=== PATIENT | male | born 1990 | race American Indian/Alaskan Native ===

== ENCOUNTER 2017-02-06 21:53 | Emergency (ER) | payer MEDICAID ==
[2017-02-06] MEDS ORDERED: NACL 0.9% 1000 ML 1,000 ML IV ONE (22:11)
--- NOTE | 2017-02-06 22:13 | Emergency Department Report ---
HPI - General Chief Complaint: Alcohol Time Seen by Provider: 02/06/17 21:59 - HPI HPI: This is a 26-year-old -[place] male who presents to the emergency department via EMS with altered mental status and suspicion for possible alcohol intoxication. The patient is currently sleeping and hard to arouse and therefore is a poor historian. He currently has a gag reflex and appears to be maintaining his respiratory status. The patient has never been here before and therefore I am unable to look up any past medical history or previous visits. ED Past Medical Hx - Past Medical History Previous Medical History?: No Additional medical history: unable to obtain - Surgical History Past Surgical History?: No Additional Surgical History: unable to obtain - Social History Smoking Status: Unknown if ever smoked Substance Use Type: Alcohol ED Review of Systems ROS: Stated complaint: ALTERED MENTAL STATUS/POSS ETOH Other details as noted in HPI Comment: Unobtainable due to pts medical conditions Physical Exam - Physical Exam Vital Signs: Vital Signs 02/06/17 22:01 Temperature 98.3 F Pulse Rate 95 H Respiratory 17 Rate Blood Pressure 108/63 Blood Pressure 108/63 [Right] O2 Sat by Pulse 95 Oximetry Physical Exam: GENERAL: The patient is well-developed well-nourished. HEENT: Normocephalic. Atraumatic. Pupils equal reactive to light bilaterally. Patient has moist mucous membranes. NECK: Supple. Trachea is midline. CHEST/LUNGS: Clear to auscultation. There is no respiratory distress noted. HEART/CARDIOVASCULAR: Regular. There is no tachycardia. There is no gallop rub or murmur. ABDOMEN: Abdomen is soft, nontender. Patient has normal bowel sounds. There is no abdominal distention. SKIN: Skin is warm and dry. NEURO: Patient is sleeping and mostly unresponsive. He does withdraw to painful stimuli. MUSCULOSKELETAL: There is no tenderness or deformity. There is no limitation range of motion. There is no evidence of acute injury. ED Course Vital Signs 02/06/17 22:01 Temperature 98.3 F Pulse Rate 95 H Respiratory 17 Rate Blood Pressure 108/63 Blood Pressure 108/63 [Right] O2 Sat by Pulse 95 Oximetry - Reevaluation(s) Reevaluation #1: Patient was reevaluated a few hours into his ED course and he is much more awake and lucid. He still appears slightly intoxicated and he does have a large blood alcohol level. The patient admits to call his him and heavy drinking tonight, along with most days. The rest of his labs appear unremarkable. He has maintained his respiratory status. 02/07/17 20:05 ED Medical Decision Making - Lab Data Result diagrams: 02/06/17 22:33 02/06/17 22:33 - Radiology Data Radiology results: report reviewed CT of the head does not show any acute process including no hemorrhage, mass, shift, diffuse edema or skull fracture. - Medical Decision Making 26-year-old male presents with what eventually was found to be alcohol intoxication. He started off at 0.38. By the time his blood alcohol level was 0.27 he was much more awake and alert and admitted to alcoholism and heavy alcohol use. CT of the head was done that did not show any bleed, shift, mass or any acute process. The rest of his labs are mostly unremarkable. He was given IV fluid, thiamine, multivitamin. The patient was monitored in the emergency department closely until he was at a sober and legal alcohol level and then he was discharged home. He was given referrals for primary care and [facility] for alcoholism help. - Differential Diagnosis alcohol intoxication, polysubstance abuse, CVA Critical Care Time: No Critical care attestation.: If time is entered above; I have spent that time in minutes in the direct care of this critically ill patient, excluding procedure time. ED Disposition Clinical Impression: Alcohol abuse, Alcoholism Alcohol intoxication Qualifiers: Complication of substance-induced condition: uncomplicated Qualified Code(s): F10.920 - Alcohol use, unspecified with intoxication, uncomplicated Disposition: DC-01 TO HOME OR SELFCARE Is pt being admited?: No Condition: Stable Instructions: Alcohol Intoxication (ED), Abuse of Alcohol (ED) Additional Instructions: I have given you a referral for [facility] in case she would like to establish care for primary care. I referral for the [facility] facility in case she would like to seek help with your out all addiction. Return to the emergency department with any acute distress. Referrals: PRIMARY CARE, [Primary Care Provider] - 3-5 Days [facility] [Outside] - 3-5 Days [facility] [Outside] - 3-5 Days Time of Disposition: 05:13
[2017-02-06 23:09] LABS: Anion Gap 20 mmol/L; BUN/Creatinine Ratio 12.22; Blood Urea Nitrogen 11 mg/dL (9-20); Calcium 8.3 mg/dL (8.4-10.2); Carbon Dioxide 24 mmol/L (22-30); Chloride 106.6 mmol/L (98-107); Glucose 100 mg/dL (75-100); Potassium 4.4 mmol/L (3.6-5.0); Sodium 146 mmol/L (137-145)
[2017-02-06] MEDS ORDERED: VITAMIN B-1 100 MG, FOLVITE 1 MG, INFUVITE 10 ML in NACL 0.9% 1000 ML 1,000 ML IV ONE (23:13)
[2017-02-06 23:28] LABS: Basophils % (Auto) 0.7 % (0.0-1.8); Eosinophils % (Auto) 1.4 % (0.0-4.3); Hematocrit 39.2 % (35.5-45.6); Hemoglobin 12.9 gm/dl (11.8-15.2); Mean Corpuscular HGB Conc 33 % (32-34); Mean Corpuscular Hemoglobin 31 pg (28-32); Mean Corpuscular Volume 95 fl (84-94); Platelet Count 264 K/mm3 (140-440); Red Blood Count 4.13 M/mm3 (3.65-5.03); White Blood Count 4.1 K/mm3 (4.5-11.0)
--- NOTE | 2017-02-06 23:40 | Cat Scan Report ---
FINAL REPORT PROCEDURE: CT HEAD/BRAIN WO CON TECHNIQUE: Computerized tomography of the head was performed without contrast material. HISTORY: AMS COMPARISON: No prior studies are available for comparison. FINDINGS: Skull and scalp: Normal. Paranasal sinuses: Normal. Ventricles and subarachnoid spaces: Normal. Cerebrum: No evidence of hemorrhage, acute infarction or mass . Cerebellum and brainstem: No evidence of hemorrhage, acute infarction or mass. Vasculature: Normal. Comments: None. IMPRESSION: There is no evidence of an acute intracranial process
[2017-02-07 01:13] LABS: Urine Drugs of Abuse Note Disclamer
[2017-02-07 01:19] LABS: Bilirubin,Urine NEG (Negative); Blood,Urine NEG (Negative); Ketones,Urine NEG (Negative); Leukocyte Esterase,Urine NEG (Negative); Mucus,Urine FEW /HPF; Nitrite,Urine NEG (Negative); Protein,Urine <15 mg/dL mg/dL (Negative); Urobilinogen,Urine < 2.0 mg/dL (<2.0)
[2017-02-07] MEDS ORDERED: NACL 0.9% 1000 ML 1,000 ML IV ONE (01:24)
[2017-02-07 15:02] VITALS: BP 149/89
== END 2017-02-07 15:06 | disposition home or self-care (01) ==
LOC: ED 21:53
DX: F10.129 Alcohol abuse with intoxication, unspecified (principal)
CPT/HCPCS: 36415; 70450; 80048; 80307; 81001; 84443; 84484; 85025; 93005; 93010; 96361; 96365; 99285; G0480; J3411; J7030; 80320

== ENCOUNTER 2017-02-09 01:52 | Emergency (ER) | payer MEDICAID ==
[2017-02-09 03:44] LABS: Hematocrit 43.1 % (35.5-45.6); Hemoglobin 14.2 gm/dl (11.8-15.2); Mean Corpuscular HGB Conc 33 % (32-34); Mean Corpuscular Hemoglobin 31 pg (28-32); Mean Corpuscular Volume 94 fl (84-94); Platelet Count 218 K/mm3 (140-440); Red Cell Distribution Width 14.7 % (13.2-15.2); White Blood Count 4.7 K/mm3 (4.5-11.0)
[2017-02-09 03:54] LABS: Alanine Aminotransferase 29 units/L (7-56); Albumin 4.3 g/dL (3.9-5); Albumin/Globulin Ratio 1.5 %; Alkaline Phosphatase 75 units/L (35-129); Anion Gap 27 mmol/L; BUN/Creatinine Ratio 7.77; Blood Urea Nitrogen 7 mg/dL (9-20); Calcium 8.8 mg/dL (8.4-10.2); Carbon Dioxide 20 mmol/L (22-30); Chloride 97.7 mmol/L (98-107); Glucose 100 mg/dL (75-100); Potassium 3.3 mmol/L (3.6-5.0); Sodium 141 mmol/L (137-145); Total Protein 7.2 g/dL (6.3-8.2)
[2017-02-09] MEDS ORDERED: VITAMIN B-1 100 MG, FOLVITE 1 MG, INFUVITE 10 ML in NACL 0.9% 1000 ML 1,000 ML IV ONE (04:47)
[2017-02-09 10:08] VITALS: BP 129/94
--- NOTE | 2017-02-09 10:13 | Emergency Department Report ---
ED General Adult HPI - General Chief complaint: Alcohol Stated complaint: FEELING FAINT Time Seen by Provider: 02/09/17 06:46 Source: patient Mode of arrival: Ambulatory Limitations: Physical Limitation - History of Present Illness Initial comments: Patient reports alcohol use. Denies trauma. Denies SI/HI. Hostetter dizzy -: Gradual Severity scale (0 -10): 0 Consistency: intermittent Improves with: none Worsens with: none Associated Symptoms: denies: confusion, chest pain, cough, diaphoresis, headaches, loss of appetite, malaise, nausea/vomiting, rash, shortness of breath , syncope, weakness - Related Data Home Medications Medication Instructions Recorded Confirmed Last Taken Unobtainable 02/09/17 02/09/17 Unknown Allergies Allergy/AdvReac Type Severity Reaction Status Date / Time Unable to Assess Allergy Verified 02/06/17 23:14 ED Review of Systems ROS: Stated complaint: FEELING FAINT Other details as noted in HPI Other: GENERAL: No weight change, fatigue, weakness, fever, chills, or night sweats SKIN: No changes in skin or hair, no itching, no rashes, no jaundice HEAD: No trauma, headache, or visual changes EYES: No blurriness, tearing, itching, acute visual loss, conjunctival discoloration, or scleral icterus EARS: No hearing loss, tinnitus, vertigo, or earache NOSE: No rhinorrhea, stuffiness, sneezing, itching, or epistaxis MOUTH: No bleeding gums, hoarseness, sore throat, or swelling CARDIAC: No new murmur, chest pain, palpitations, dyspnea on exertion, orthopnea , PND, or edema RESPIRATORY: No shortness of breath, wheeze, cough, sputum production, hemoptysis, pneumonia, asthma, bronchitis, or emphysema GI: No change in appetite, nausea, vomiting, dysphagia, change in bowel frequency, diarrhea, constipation, bleeding, hematemesis, melena, hematochezia, or abdominal pain URINARY: No frequency, urgency, polyuria, dysuria, hematuria, or incontinence MUSCULOSKELETAL: No muscle weakness, joint stiffness, decrease in range of motion, redness, swelling, tenderness NEUROLOGIC: No loss of sensation, numbness, tingling, tremors, weakness, paralysis, seizures HEMATOLOGIC: No anemia, easy bruising, bleeding, petechiae, or purpura ENDOCRINE: No hot or cold intolerance, sweating, polyuria, polydipsia or, polyphagia no thyroid problems PSYCHIATRIC: No change in mood, no anxiety, no depression ED Past Medical Hx - Past Medical History Additional medical history: unable to obtain - Surgical History Additional Surgical History: unable to obtain - Social History Smoking Status: Unknown if ever smoked Substance Use Type: Alcohol - Medications Home Medications: Home Medications Medication Instructions Recorded Confirmed Last Taken Type Unobtainable 02/09/17 02/09/17 Unknown History ED Physical Exam - General Limitations: Physical Limitation - Other Other exam information: GENERAL: Patient in no acute distress HEAD: Normocephalic, atraumatic EYES: PERRLA, EOM intact, no scleral icterus, no papilledema, no conjunctival hemorrhage, visual bhakta and acuity wnl, NOSE: No tenderness, discharge, sinus tenderness MOUTH: No erythema, bleeding, exudate HEART: Regular rate and rhythm, no murmur, S1-S2 are auscultated, pulses are symmetric LUNGS: No wheezing, rales, rhonchi, bilateral breath sounds ABDOMEN: Normal bowel sounds, no tenderness, no rebound, no guarding, no masses , no CVA tenderness MUSCULOSKELETAL: Normal joint range of motion, no redness, no swelling, no tenderness NEUROLOGIC: GCS 15, Alert and Oriented x3, Cranial nerves intact, normal sensation, normal strength, normal gait, no cerebellar deficit PSYCHIATRIC: No homicidal or suicidal ideation, no anxiety, no depression, no hallucinations SKIN: Skin is warm and dry, no wounds, no rashes ED Course Vital Signs 02/09/17 02/09/17 02/09/17 03:01 04:23 04:30 Temperature 98.2 F Pulse Rate 86 71 75 Respiratory 18 16 18 Rate Blood Pressure 124/79 104/63 O2 Sat by Pulse 98 98 Oximetry 02/09/17 02/09/17 02/09/17 04:35 04:39 04:40 Temperature 98.1 F Pulse Rate 76 Respiratory 17 18 Rate Blood Pressure 104/63 O2 Sat by Pulse 98 Oximetry 02/09/17 02/09/17 02/09/17 04:50 05:00 05:10 Temperature Pulse Rate 77 77 75 Respiratory 19 17 16 Rate Blood Pressure 110/57 108/63 108/63 O2 Sat by Pulse 98 98 99 Oximetry 02/09/17 02/09/17 02/09/17 05:20 05:30 05:40 Temperature Pulse Rate 69 78 73 Respiratory 16 18 15 Rate Blood Pressure 104/60 122/86 122/86 O2 Sat by Pulse 100 100 100 Oximetry 02/09/17 02/09/17 02/09/17 05:50 06:00 06:10 Temperature Pulse Rate 64 71 66 Respiratory 18 10 L 15 Rate Blood Pressure 114/77 108/69 108/69 O2 Sat by Pulse 100 100 99 Oximetry 02/09/17 02/09/17 02/09/17 06:20 06:30 06:40 Temperature Pulse Rate 63 67 61 Respiratory 19 15 16 Rate Blood Pressure 112/70 120/75 120/75 O2 Sat by Pulse 100 98 99 Oximetry 02/09/17 02/09/17 02/09/17 06:50 07:00 07:30 Temperature Pulse Rate 82 66 Respiratory 15 28 H 16 Rate Blood Pressure 121/86 121/86 118/75 O2 Sat by Pulse 99 99 100 Oximetry 02/09/17 02/09/17 02/09/17 08:00 08:30 09:00 Temperature Pulse Rate 66 72 Respiratory 40 H 16 17 Rate Blood Pressure 113/90 107/61 128/81 O2 Sat by Pulse 97 94 95 Oximetry 02/09/17 02/09/17 09:30 10:00 Temperature Pulse Rate 74 67 Respiratory 18 22 Rate Blood Pressure 127/91 129/94 O2 Sat by Pulse 86 89 Oximetry ED Medical Decision Making - Lab Data Result diagrams: 02/09/17 03:09 02/09/17 03:09 - Medical Decision Making Patient comfortable. Updated with results. Plan discharge with outpatient follow-up. Patient agrees with plan and will return if symptoms worsen. Critical care attestation.: If time is entered above; I have spent that time in minutes in the direct care of this critically ill patient, excluding procedure time. ED Disposition Clinical Impression: Alcohol abuse Disposition: DC-01 TO HOME OR SELFCARE Is pt being admited?: No Condition: Stable Instructions: Abuse of Alcohol (ED) Referrals: PRIMARY CARE, [Primary Care Provider] - 3-5 Days Time of Disposition: 10:10
[2017-02-09 10:22] LABS: Urine Drugs of Abuse Note Disclamer
[2017-02-09 10:33] LABS: Bilirubin,Urine NEG (Negative); Blood,Urine NEG (Negative); Ketones,Urine NEG (Negative); Leukocyte Esterase,Urine NEG (Negative); Mucus,Urine FEW /HPF; Nitrite,Urine NEG (Negative); Protein,Urine <15 mg/dL mg/dL (Negative); Urobilinogen,Urine < 2.0 mg/dL (<2.0)
== END 2017-02-09 10:20 | disposition home or self-care (01) ==
LOC: ED 01:52
DX: F10.10 Alcohol abuse, uncomplicated (principal)
CPT/HCPCS: 36415; 80053; 80307; 81001; 82962; 85027; 96365; 96366; 99283; G0480; J3411; J7030; 80320

== ENCOUNTER 2017-02-09 14:18 | Emergency (ER) | payer MEDICAID | END 2017-02-09 14:19 | disposition left against medical advice (07) | LOC: ED 14:18 | DX: F10.10 Alcohol abuse, uncomplicated (principal); Z53.21 Procedure and treatment not carried out due to patient leaving prior to being seen by health care provider ==